=== PATIENT | female | born 1980 | race Caucasian/White ===

== ENCOUNTER 2023-12-06 12:46 | Emergency (ER) | payer SELFPAY ==
[2023-12-06 12:49] VITALS: BP 155/96; PULSE 77; RESP 18; TEMP 36.7; O2SAT 99; BMI 40.7
--- NOTE | 2023-12-06 13:30 | DI.RAD.S_ITS ---
PROCEDURE: XR CHEST 2V INDICATIONS: chest pain TECHNIQUE: 2 views of the chest were acquired. COMPARISON: None. FINDINGS: Surgical changes and devices: None. Lungs and pleura: Mild diffuse reticulonodular pulmonary opacity. No pleural effusions or pneumothorax. Mediastinum: Mediastinal contours are normal. Heart size is normal. Bones and chest wall: No suspicious bony abnormalities. Soft tissues appear unremarkable. IMPRESSION: No acute cardiopulmonary abnormality is seen. Dictated by: Marion Curtis M.D. on 12/06/2023 at 14:41 Approved by: Marion Curtis M.D. on 12/06/2023 at 14:42
--- NOTE | 2023-12-06 13:36 | ED.GENADULT ---
HPI - General Adult <Meghan Solorzano PA-C - Last Filed: 12/06/23 16:15> General Chief complaint: Shortness of Breath/Dyspnea Stated complaint: diff breathing, fatigue Time Seen by Provider: 12/06/23 12:57 Source: patient Mode of arrival: Ambulatory History of Present Illness HPI narrative: 43-year-old female with no reported past medical history presents to the ED with 2 weeks of fatigue, right-sided neck pain, chest tightness, cough. Patient denies fever, chills rhinorrhea, sore throat, vomiting, abdominal pain, dysuria, lightheadedness, dizziness, syncope. Patient does endorse some nausea. Patient describes the right-sided neck pain in the area of the anterior lymph nodes. Patient is status post a tonsillectomy. Patient tested negative for COVID a few days ago. No history of DVT or PE. Patient is a current smoker. Related Data Allergies Allergy/AdvReac Type Severity Reaction Status Date / Time No Known Drug Allergies Allergy Verified 12/06/23 12:49 Review of Systems <Meghan Solorzano PA-C - Last Filed: 12/06/23 16:15> Constitutional Constitutional: Denies chills, Reports fatigue, Denies fever(s), Denies frequent falls, Denies lethargy and Denies weakness Eyes Eyes: Denies change in vision, Denies eye discharge, Denies irritation and Denies loss of vision ENT Ears, Nose, Mouth, and Throat: Denies change in voice, Denies dizziness, Reports neck pain, Denies sore throat and Denies throat swelling Cardiovascular Cardiovascular: Reports chest pain, Denies irregular heart rhythm, Denies lightheadedness, Denies palpitations, Denies dyspnea, Denies dyspnea on exertion and Denies orthopnea Respiratory Respiratory: Reports cough, Denies dyspnea, Denies dyspnea on exertion and Denies wheezing Gastrointestinal Gastrointestinal: Denies abdominal pain, Denies change in bowel habits, Denies diarrhea, Denies nausea and Denies vomiting Musculoskeletal Musculoskeletal: Reports neck pain and Denies numbness Integumentary/Breasts Skin/Breast: Denies pruritus, Denies erythema, Denies rash and Denies wounds Neurologic Neurologic: Denies behavioral changes, Denies confusion, Denies dizziness, Denies frequent falls, Denies loss of vision, Denies numbness and Denies weakness Psychiatric Psychiatric: Denies anxiety, Denies behavioral changes, Denies confusion, Denies depression, Denies homicidal ideation and Denies suicidal ideation Endocrine Endocrine: Reports fatigue, Denies flushing and Denies palpitations Hematologic/Lymphatic Hematologic/Lymphatic: Denies easy bruising Allergic/Immunologic Allergic/Immunologic: Denies urticaria, Denies throat swelling and Denies wheezing Patient History <Meghan Solorzano PA-C - Last Filed: 12/06/23 16:15> Social History Smoking Status: Current every day smoker Smoking Status: Current every day smoker tobacco type: cigarettes Substance Use Type: marijuana Exam <Meghan Solorzano PA-C - Last Filed: 12/06/23 16:15> Narrative Exam Narrative: Const General:?cooperative, healthy appearing and comfortable HENAL Head:?normal to inspection Ears:?hearing grossly normal bilaterally Nose:?external nose normal Face and sinus:?normal facial exam and sinuses nontender Mouth:?oral mucosae normal Throat:?posterior oropharynx normal Eyes General:?appearance normal, both eyes and all related structures Neck Neck:?normal visual inspection; there is some right-sided anterior lymphadenopathy. Resp Effort & Inspection:?normal respiratory effort Auscultation:?clear to auscultation bilaterally Cardio Rate:?regular rate Rhythm:?regular rhythm Neuro General:?patient alert, patient awake and patient oriented x3 Initial Vital Signs Initial Vital Signs: Vital Signs Temperature 98.0 F 12/06/23 12:49 Pulse Rate 77 12/06/23 12:49 Respiratory Rate 18 12/06/23 12:49 Blood Pressure 155/96 H 12/06/23 12:49 Pulse Oximetry 99 12/06/23 12:49 Oxygen Delivery Method Room Air 12/06/23 12:49 <Rob Baird MD - Last Filed: 12/06/23 18:11> Initial Vital Signs Initial Vital Signs: Vital Signs Temperature 98.0 F 12/06/23 12:49 Pulse Rate 77 12/06/23 12:49 Respiratory Rate 18 12/06/23 12:49 Blood Pressure 155/96 H 12/06/23 12:49 Pulse Oximetry 99 12/06/23 12:49 Oxygen Delivery Method Room Air 12/06/23 12:49 Course <Meghan Solorzano PA-C - Last Filed: 12/06/23 16:15> Orders Ordered: ED Orders 12/06/23 13:30 CXR [XR chest 2V] Stat EKG-12 Lead Stat Vital Signs Vital signs: Vital Signs - 8 hr 12/06/23 12:49 12/06/23 15:08 Temperature 98.0 F Pulse Rate 77 75 Respiratory Rate 18 18 Blood Pressure 155/96 H 151/90 H Pulse Oximetry 99 99 Oxygen Delivery Method Room Air Room Air <Rob Baird MD - Last Filed: 12/06/23 18:11> Orders Ordered: ED Orders 12/06/23 13:30 CXR [XR chest 2V] Stat EKG-12 Lead Stat Vital Signs Vital signs: Vital Signs - 8 hr 12/06/23 12:49 12/06/23 15:08 Temperature 98.0 F Pulse Rate 77 75 Respiratory Rate 18 18 Blood Pressure 155/96 H 151/90 H Pulse Oximetry 99 99 Oxygen Delivery Method Room Air Room Air Medical Decision Making <Meghan Solorzano PA-C - Last Filed: 12/06/23 16:15> Lab Data Labs: Point of Care Testing Test Results Negative Urine Dip Bedside Urine Glucose Negative Bedside Urine Bilirubin - Negative Bedside Urine Ketone - Negative Urine Specific [place] 1.020 Bedside Urine Occult Blood - Negative Bedside Urine pH 6.5 Bedside Urine Protein - Negative Bedside Urine Urobilinogen - Negative Bedside Urine Nitrite - Negative Bedside Urine Leukocytes +/- 15 Esterase Point of care testing: Point of Care Testing Test Results Negative Urine Dip Bedside Urine Glucose Negative Bedside Urine Bilirubin - Negative Bedside Urine Ketone - Negative Urine Specific [place] 1.020 Bedside Urine Occult Blood - Negative Bedside Urine pH 6.5 Bedside Urine Protein - Negative Bedside Urine Urobilinogen - Negative Bedside Urine Nitrite - Negative Bedside Urine Leukocytes +/- 15 Esterase [facility] Narrative Medical decision making narrative: 43-year-old female with no reported past medical history presents to the ED with 2 weeks of fatigue, right-sided neck pain, chest tightness, cough. EKG is normal sinus rhythm with no acute ST-T changes. Chest x-ray without acute findings. Patient's symptoms most consistent with a viral URI. Supportive care discussed with patient. Recommend follow-up with PCP as soon as possible. ED return precautions discussed with patient. Patient verbalized understanding. Medical records reviewed: Yes <Rob Baird MD - Last Filed: 12/06/23 18:11> Lab Data Labs: Point of Care Testing Test Results Negative Urine Dip Bedside Urine Glucose Negative Bedside Urine Bilirubin - Negative Bedside Urine Ketone - Negative Urine Specific [place] 1.020 Bedside Urine Occult Blood - Negative Bedside Urine pH 6.5 Bedside Urine Protein - Negative Bedside Urine Urobilinogen - Negative Bedside Urine Nitrite - Negative Bedside Urine Leukocytes +/- 15 Esterase Point of care testing: Point of Care Testing Test Results Negative Urine Dip Bedside Urine Glucose Negative Bedside Urine Bilirubin - Negative Bedside Urine Ketone - Negative Urine Specific [place] 1.020 Bedside Urine Occult Blood - Negative Bedside Urine pH 6.5 Bedside Urine Protein - Negative Bedside Urine Urobilinogen - Negative Bedside Urine Nitrite - Negative Bedside Urine Leukocytes +/- 15 Esterase Discharge Plan Departure Patient Disposition: Home Clinical Impression: Upper respiratory infection Qualifiers: URI type: unspecified viral URI Qualified Code(s): J06.9 - Acute upper respiratory infection, unspecified Instructions: DI for Viral Upper Respiratory Infection -- Adult Activity Restrictions/Additional Instructions: You were evaluated in the ED today for a cough and fatigue. Chest x-ray and EKG were normal. Your symptoms are most consistent with a viral upper respiratory infection. Please stay well hydrated. You may take Tylenol and ibuprofen and [id number] cough medications for your symptoms. Please ensure to get plenty of rest. Please follow-up with your primary care doctor as soon as possible. Return to the ED if you have worsening symptoms, chest pain, shortness of breath. Stand Alone Forms: Patient Portal/API ED Sign-out <Rob Baird MD - Last Filed: 12/06/23 18:11> Cosign ED Attending Cosrobertature Attestation: I was immediately available in the department for consultation. Documentation has been reviewed. I agree with assessment and plan.
[2023-12-06 15:08] VITALS: BP 151/90; PULSE 75; RESP 18; O2SAT 99
== END 2023-12-06 15:00 | disposition home or self-care (01) ==
PROVIDERS: Emergency Provider Student in an Organized Health Care Education/Training Program
DX: J06.9 Acute upper respiratory infection, unspecified (principal); R07.9 Chest pain, unspecified; Z20.822 Contact with and (suspected) exposure to COVID-19
CPT/HCPCS: 71046; 81003; 81025; 93005; 99282; 99284